=== PATIENT | female | born 1940 | race African-American/Black ===

== ENCOUNTER 2021-02-03 04:37 | Day surgery (SDC) | payer OTHER ==
[2021-02-01 17:42] VITALS: BMI 24.2
[2021-02-03] MEDS ORDERED: ceFAZolin SODIUM 1 GM VIAL IVPB ONE (08:10)
[2021-02-03] MEDS ORDERED: LIDOCAINE 1%/EPI 1:100000 (20 ML MULTI DOSE VIAL) IJ ONE ×3 (08:36)
[2021-02-03] MEDS ORDERED: BUPIVACAINE HCL/PF 0.5% (5MG/ML) 10 ML VIAL IJ ONE ×2 (08:36)
[2021-02-03] MEDS ORDERED: MICROFIBRILLAR COLLAGEN 1 GM EACH TP ONE (09:28)
[2021-02-03] MEDS ORDERED: ONDANSETRON 4 MG/2 ML VIAL IVPUSH PRN (09:57)
[2021-02-03] MEDS ORDERED: LABETALOL HCL 5 MG/1 ML (100MG/20 ML VIAL) IVPUSH ONE ×2 (09:57→13:35)
[2021-02-03] MEDS ORDERED: LACTATED RINGERS SOLUTION 1,000 ML IV SCH (10:00)
[2021-02-03] MEDS ORDERED: oxyCODONE HCL 5 MG TABLET PO ONE (12:45)
[2021-02-03] MEDS ORDERED: oxyCODONE HCL 5 MG TABLET PO PRN (13:35)
[2021-02-03 15:32] VITALS: BP 148/78; PULSE 80; TEMP 97.8
== END 2021-02-03 14:45 | disposition home or self-care (01) ==
LOC: EDBD → JASU-SURG 04:37
PROVIDERS: ATTEND Surgery
PROC: 0GBJ0ZZ Excision of Thyroid Gland Isthmus, Open Approach (ICD-10-PCS; 2021-02-03)
PROC: 0GTK0ZZ Resection of Thyroid Gland, Open Approach (ICD-10-PCS; principal; 2021-02-03 08:00)
DX: E05.20 Thyrotoxicosis with toxic multinodular goiter without thyrotoxic crisis or storm (principal)
CPT/HCPCS: 88307-TC; 94760